=== PATIENT | female | born 1995 | race Caucasian/White ===

== ENCOUNTER 2017-05-09 11:47 | Emergency (ER) | payer MEDICARE ==
[~2017-05-09] VITALS: Ht 152.4 cm; Wt 42.4 kg
--- NOTE | 2017-05-09 13:01 | PHYS DOC ---
Adult General Chief Complaint Chief Complaint: VAGINAL BLEEDING HPI HPI Patient is a 22 year old F who presents with vaginal bleeding. Patient states she took 2 test at home that were positive. Patient's last menstrual period was March 17, 2017. Patient is . Patient denies any abdominal cramping however does complain of some lower back pain. Patient states this morning started having light vaginal bleeding. Patient denies any abnormal discharge. Patient has no other complaints. Review of Systems Review of Systems GEN: Denies fevers, chills, sweats HEENT: Denies blurred vision, sore throat CV: Denies chest pain RESP: Denies shortness of air, cough GI: Denies n/v/d : vag bleeding NEURO: Denies confusion, dizziness MSK: Denies weakness, joint pain/swelling Allergies Allergies Allergies Coded Allergies Type Severity Reaction Last Updated Verified No Known Drug Allergies 05/09/17 No Physical Exam Physical Exam GEN.: No apparent distress. Alert and oriented. HEENT: Head is normocephalic, atraumatic NECK: Supple. LUNGS: CTAB. HEART: RRR, S1, S2 present. Peripheral pulses intact ABDOMEN: Soft, nontender. Positive bowel sounds. EXTREMITIES: Without any cyanosis. NEUROLOGIC: Normal speech, normal tone PSYCHIATRIC: Normal affect, normal mood. SKIN: No ulcerations Current Patient Data Vital Signs Vital Signs Date Time Temp Pulse Resp B/P (MAP) Pulse Ox O2 Delivery O2 Flow Rate FiO2 05/09/17 15:32 70 27 110/58 (75) 98 Room Air 05/09/17 13:06 99.5 99.5 Lab Values Laboratory Tests Test 05/09/17 12:45 05/09/17 12:56 05/09/17 13:18 Urine Collection Type Unknown Urine Color Yellow Urine Clarity Clear Urine pH 6.5 Urine Specific [place] 1.010 Urine Protein Negative mg/dL (NEG-TRACE) Urine Glucose (UA) Negative mg/dL (NEG) Urine Ketones (Stick) Negative mg/dL (NEG) Urine Blood Negative (NEG) Urine Nitrite Negative (NEG) Urine Bilirubin Negative (NEG) Urine Urobilinogen Dipstick 0.2 mg/dL (0.2 mg/dL) Urine Leukocyte Esterase Negative (NEG) Urine RBC 0 /HPF (0-2) Urine WBC 0 /HPF (0-4) Urine Squamous Epithelial Cells Few /LPF Urine Bacteria 0 /HPF (0-FEW) Urine Mucus Slight /LPF POC Urine HCG, Qualitative Hcg positive (Negative) White Blood Count 7.0 x10^3/uL (4.0-11.0) Red Blood Count 4.43 x10^6/uL (3.50-5.40) Hemoglobin 13.2 g/dL (12.0-15.5) Hematocrit 39.5 % (36.0-47.0) Mean Corpuscular Volume 89 fL (79-100) Mean Corpuscular Hemoglobin 30 pg (25-35) Mean Corpuscular Hemoglobin Concent 34 g/dL (31-37) Red Cell Distribution Width 13.7 % (11.5-14.5) Platelet Count 266 x10^3/uL (140-400) Neutrophils (%) (Auto) 47 % (31-73) Lymphocytes (%) (Auto) 43 % (24-48) Monocytes (%) (Auto) 8 % (0-9) Eosinophils (%) (Auto) 1 % (0-3) Basophils (%) (Auto) 1 % (0-3) Neutrophils # (Auto) 3.3 x10^3uL (1.8-7.7) Lymphocytes # (Auto) 3.0 x10^3/uL (1.0-4.8) Monocytes # (Auto) 0.6 x10^3/uL (0.0-1.1) Eosinophils # (Auto) 0.1 x10^3/uL (0.0-0.7) Basophils # (Auto) 0.1 x10^3/uL (0.0-0.2) Maternal Serum HCG Beta Subunit 52229 mIU/mL (0-5) H Sodium Level 139 mmol/L (136-145) Potassium Level 3.7 mmol/L (3.5-5.1) Chloride Level 103 mmol/L (98-107) Carbon Dioxide Level 26 mmol/L (21-32) Anion Gap 10 (6-14) Blood Urea Nitrogen 8 mg/dL (7-20) Creatinine 0.6 mg/dL (0.6-1.0) Estimated GFR (Cockcroft-Gault) 126.2 BUN/Creatinine Ratio 13 (6-20) Glucose Level 82 mg/dL (70-99) Calcium Level 8.7 mg/dL (8.5-10.1) Total Bilirubin 0.7 mg/dL (0.2-1.0) Aspartate Amino Transferase (AST) 17 U/L (15-37) Alanine Aminotransferase (ALT) 27 U/L (14-59) Alkaline Phosphatase 65 U/L (46-116) Total Protein 7.5 g/dL (6.4-8.2) Albumin 4.0 g/dL (3.4-5.0) Albumin/Globulin Ratio 1.1 (1.0-1.7) Laboratory Tests 05/09/17 13:18 Laboratory Tests 05/09/17 13:18 EKG EKG [] Radiology/Procedures Radiology/Procedures IMPRESSION: 1. Single viable intrauterine gestation with estimated sonographic gestational age of 6 weeks 1 day. No acute findings. 2. Small amount of free pelvic fluid, nonspecific.[] Course & Med Decision Making Course & Med Decision Making Pertinent Labs and Imaging studies reviewed. (See chart for details) Patient was seen and examined emergency room CBC, CMP, UA, and urine., Beta hCG , Rh, ultrasound were ordered 1630: Patient was updated on ultrasound findings and diagnosis of threatened miscarriage and discussed first trimester bleeding. Recommended pelvic rest and follow-up with [facility]. MDM: After reviewing the chart, CC/HPI/PMH, physical exam, [lab results], [ radiological results], I do not believe the patient has an ectopic or an OB emergency warranting further workup and/or admission at this time. I believe patient is stable for discharge. Patient is Rh+. Additional verbal discharge instructions were provided to the patient and that if symptoms get worse or any new symptoms arise that are worrisome to the patient she is to return to the emergency room immediately [] Dragon Disclaimer Dragon Disclaimer This electronic medical record was generated, in whole or in part, using a voice recognition dictation system. Departure Departure Impression: Primary Impression: Threatened miscarriage Additional Impressions: Vaginal bleeding Disposition: HOME, SELF-CARE Condition: STABLE Patient Instructions: Threatened Miscarriage, [id number] Additional Instructions: Please follow up with her own OBGYN and pelvic rest until he follow-up Problem Qualifiers MÓNICA YOUNGBLOOD DO May 09, 2017 13:01
[2017-05-09 13:27] LABS: BILIRUBIN,URINE NEGATIVE (NEG); GLUCOSE,URINE NEGATIVE (NEG); NITRITE,URINE NEGATIVE (NEG); PH,URINE 6.5; PROTEIN,URINE NEGATIVE (NEG-TRACE); UROBILINOGEN,URINE 0.2 mg/dL (0.2 mg/dL)
[2017-05-09 13:30] LABS: BASO # 0.1 x10^3/uL (0.0-0.2); BASO % 1 % (0-3); EOS % 1 % (0-3); HEMATOCRIT 39.5 % (36.0-47.0); HEMOGLOBIN 13.2 g/dL (12.0-15.5); LYMPH % 43 % (24-48); MEAN CORPUSCULAR HEMOGLOBIN 30 pg (25-35); MEAN CORPUSCULAR HGB CONC 34 g/dL (31-37); MEAN CORPUSCULAR VOLUME 89 fL (79-100); MONO % 8 % (0-9); NEUT % 47 % (31-73); PLATELET COUNT 266 x10^3/uL (140-400); RED BLOOD COUNT 4.43 x10^6/uL (3.50-5.40); RED CELL DISTRIBUTION WIDTH 13.7 % (11.5-14.5)
[2017-05-09 13:40] LABS: BACTERIA,URINE 0 /HPF (0-FEW); RBC,URINE 0 /HPF (0-2); SQUAMOUS EPITHELIAL CELL,UR FEW /LPF; WBC,URINE 0 /HPF (0-4)
[2017-05-09 13:44] LABS: CALCIUM 8.7 mg/dL (8.5-10.1); CREATININE 0.6 mg/dL (0.6-1.0); GFR 126.2; POTASSIUM 3.7 mmol/L (3.5-5.1)
[2017-05-09 13:51] LABS: ALBUMIN/GLOBULIN RATIO 1.1 (1.0-1.7); TOTAL BILIRUBIN 0.7 mg/dL (0.2-1.0); TOTAL PROTEIN 7.5 g/dL (6.4-8.2)
[2017-05-09 15:32] VITALS: BP 110/58
--- NOTE | 2017-05-09 16:07 | RAD ---
OB ultrasound dated 05/09/2017. No comparison available. Clinical indication: Vaginal bleeding. FINDINGS: Transabdominal and transvaginal imaging performed. Uterus is retroverted and measures 7.1 x 6.1 x 3.9 cm. Gestational sac and pole within the endometrial canal with crown-rump length measuring 0.4 cm, correlating with a 6 week 1 day gestation. heart rate 92 bpm. Yolk sac is visualized. Estimated sonographic date of delivery of 01/01/2018. No subchorionic collection. Right ovary measures 3.4 x 1.4 x 2.1 cm. Left ovary measures 3.0 x 1.5 x 3.1 cm. Normal-appearing follicle at the left ovary. Small amount of free fluid. IMPRESSION: 1. Single viable intrauterine gestation with estimated sonographic gestational age of 6 weeks 1 day. No acute findings. 2. Small amount of free pelvic fluid, nonspecific. Electronically signed by: Kalin Meier MD (05/09/2017 4:04 PM) [facility]
== END 2017-05-09 17:35 | disposition home or self-care (01) ==
LOC: ER 11:47
DX: O20.0 Threatened abortion (principal); O26.891 Other specified pregnancy related conditions, first trimester; M54.5 Low back pain; Z3A.01 Less than 8 weeks gestation of pregnancy
CPT/HCPCS: 36415; 76801; 80053; 81001; 81025; 84702; 85025; 86901; 99285-25

== ENCOUNTER 2017-09-15 18:08 | Emergency (ER) | payer MEDICARE | END 2017-09-15 18:53 | disposition home or self-care (01) | LOC: ER 18:08 | DX: O98.512 Other viral diseases complicating pregnancy, second trimester (principal); B34.9 Viral infection, unspecified; Z3A.24 24 weeks gestation of pregnancy | CPT/HCPCS: 99283 ==

== ENCOUNTER 2018-12-23 14:59 | Emergency (ER) | payer OTHER, MEDICARE ==
[~2018-12-23] VITALS: Ht 160 cm; Wt 44.5 kg
[~2018-12-23 14:59] MED LIST: OSEL75CA PO
[2018-12-23] MEDS ORDERED: ALBUTEROL SULFATE 2.5 MG/3 ML NEBU. NEB ONE (15:30)
[2018-12-23 15:33] VITALS: BP 108/71
--- NOTE | 2018-12-23 15:55 | PHYS DOC ---
Past Medical History Past Medical History: No Pertinent History Past Surgical History: No Surgical History Alcohol Use: None Drug Use: None Adult General Chief Complaint Chief Complaint: COUGH HPI HPI Patient is a 23 year old F who presents with several days of cough, chills, sore throat and body aches. She states her daughter and her mom have had similar symptoms at home. She states her chest hurts from coughing so much. She does smoke and was educated on importance of quitting. Pt gets Depo Provera shots and states she does not have periods. She is up to date on her shot. Review of Systems Review of Systems Constitutional: Reports fever and chills. HENT: Reports mild nasal congestion and sore throat. Respiratory: Reports cough. Cardiovascular: Denies chest pain. GI: Denies abdominal pain, nausea, vomiting, bloody stools or diarrhea : Denies dysuria or hematuria Musculoskeletal: Denies back pain or joint pain Integument: Denies rash or skin lesions Neurologic: Denies headache, focal weakness or sensory changes Endocrine: Denies polyuria or polydipsia All other systems were reviewed and found to be within normal limits, except as documented in this note. Current Medications Current Medications Current Medications Medications (Trade) Dose Ordered Sig/Rhoda Start Time Stop Time Status Last Admin Dose Admin Albuterol Sulfate (Ventolin Neb Soln) 2.5 mg 1X ONCE 12/23/18 15:30 12/23/18 15:31 DC 12/23/18 15:46 2.5 MG Allergies Allergies Allergies Coded Allergies Type Severity Reaction Last Updated Verified No Known Drug Allergies 05/09/17 No Physical Exam Physical Exam Constitutional: Well developed, well nourished, no acute distress, non-toxic a ppearance. HENT: Normocephalic, atraumatic, bilateral external ears normal, oropharynx moist, no oral exudates, nose normal. Neck: Normal range of motion, no tenderness, supple, no stridor. Cardiovascular:Heart rate regular rhythm, no murmur Lungs & Thorax: Scattered wheezing throughout. Abdomen: Bowel sounds normal, soft, no tenderness, no masses, no pulsatile masses. Skin: Warm, dry, no erythema, no rash. Back: No tenderness, no CVA tenderness. Extremities: No tenderness, no cyanosis, no clubbing, ROM intact, no edema. Neurologic: Alert and oriented X 3, normal motor function, normal sensory function, no focal deficits noted. Psychologic: Affect normal, judgement normal, mood normal. Current Patient Data Vital Signs Vital Signs Date Time Temp Pulse Resp B/P (MAP) Pulse Ox O2 Delivery O2 Flow Rate FiO2 12/23/18 15:47 98 Room Air 12/23/18 15:33 98.6 98 16 108/71 (83) 98.6 EKG EKG [] Radiology/Procedures Radiology/Procedures CXR shows infiltrate suggestive of pneumonia Course & Med Decision Making Course & Med Decision Making Pertinent Labs and Imaging studies reviewed. (See chart for details) Discussed pneumonia findings on CXR and need for rest, fluids and close f/u with PCP. Pt tells me she has been having some diarrhea also. Discussed that Immodium can be taken if she feels she is going too frequently but discussed that sometimes diarrhea just needs to run its course and hydration is most important. Pt to return if symptoms worsen at anytime. Dragon Disclaimer Dragon Disclaimer This electronic medical record was generated, in whole or in part, using a voice recognition dictation system. Departure Departure Impression: Primary Impression: Pneumonia Disposition: 01 HOME, SELF-CARE Condition: IMPROVED Referrals: JONATHAN BERGER MD (PCP) Patient Instructions: Diarrhea, [id number], Pneumonia, Adult Additional Instructions: Push fluids and electrolytes (such as Gatorade, Powerade, etc). Follow up with your primary care doctor for recheck, return to ER if symptoms worsen at anytime. Scripts Promethazine Hcl/Codeine (PROMETHAZINE-CODEINE SYRUP) 118 Ml Syrup 5 ML PO Q4-6HRS PRN for COUGH, #120 ML This medicine can be helpful for nausea/vomiting, pain and cough. Prov: SHWETA SANTAMARIA 12/23/18 Loperamide HCl (Imodium A-D) 2 Mg Capsule 2 MG PO Q8HRS PRN for DIARRHEA, #12 CAP Prov: SHWETA SANTAMARIA 12/23/18 Azithromycin (AZITHROMYCIN PACKET) 1 Gm Packet 1 PACKET PO ONCE, #1 PACKET Prov: SHWETA SANTAMARIA 12/23/18 SHWETA SANTAMARIA December 23, 2018 15:55
--- NOTE | 2018-12-23 15:58 | RAD ---
Chest, 2 views, 12/23/2018: HISTORY: Fever and cough The heart size is normal. There is mild infiltrate in the lingula on the left. The right lung is clear. There is no evidence of pleural fluid. IMPRESSION: Mild lingular infiltrate suggesting pneumonia Electronically signed by: Carter Molina MD (12/23/2018 3:55 PM) [facility]
[2018-12-23] MEDS ORDERED: PROM118S5 PO (16:11)
[2018-12-23] MEDS ORDERED: AZIT1PAC9 PO (16:11)
[2018-12-23] MEDS ORDERED: LOPE2CAP88 PO (16:11)
== END 2018-12-23 16:19 | disposition home or self-care (01) ==
LOC: ER 14:59
DX: J18.9 Pneumonia, unspecified organism (principal); F17.200 Nicotine dependence, unspecified, uncomplicated
CPT/HCPCS: 71046; 94640; 99284; J7613